=== PATIENT | female | born 1960 | race Caucasian/White ===

== ENCOUNTER → 2017-10-17 | Outpatient (CLI) | payer OTHER ==
[~2017-10-17] MED LIST: ACET500 PO; ALPR.5 PO; AMLO10 PO; AMLO5 PO; ASPI81CH PO; BACL10 PO; CHOL10002 PO; DULO60 PO; FLUC150A PO; GABA300 PO; HYDCHL25 PO; HYDR1TAB94 PO; HYDRA25 PO; IBUP800 PO; LAMO100 PO; LISI20 PO; MELO7.5 PO; METF500 PO; NAPR500EC PO; PARO20 PO; SULTRIDS PO; UBID10 PO
[2017-10-17 16:29] LABS: Creatinine, Urine Random 75.7 mg/dL (27.00-270.00); Protein, Urine Random 15.6 mg/dL (0.0-11.9)
== END ==
LOC: OLS 14:06
PROVIDERS: Internal Medicine
DX: E11.9 Type 2 diabetes mellitus without complications (principal); E22.1 Hyperprolactinemia; I10 Essential (primary) hypertension
CPT/HCPCS: 82570; 84156

== ENCOUNTER 2021-04-26 21:43 | Emergency (ER) | payer OTHER ==
[~2021-04-26] VITALS: Ht 165.1 cm; Wt 163.3 kg
[2021-04-26] MEDS ORDERED: OXYC10TA19 PO (22:11)
[2021-04-26] MEDS ORDERED: PARO20 PO (22:12)
== END 2021-04-26 23:37 | disposition home or self-care (01) ==
LOC: ER 21:43
DX: M54.5 Low back pain (principal); E11.9 Type 2 diabetes mellitus without complications; I10 Essential (primary) hypertension; Z79.82 Long term (current) use of aspirin; Z79.899 Other long term (current) drug therapy; W01.10XA Fall on same level from slipping, tripping and stumbling with subsequent striking against unspecified object, initial encounter
CPT/HCPCS: 72100; 99283-25; A9270

== ENCOUNTER → 2024-06-08 | Outpatient (CLI) | payer OTHER ==
[~2024-06-08] MED LIST changes: +OXYC10TA19 PO
[2024-06-08 19:07] LABS: Hematocrit 38.7 % (33.0-51.0); Hemoglobin 12.4 g/dL (11.5-16.0); Mean Corpuscular Volume 90 fL (80-100); Mean Platelet Volume 10.9 fL (9.1-12.4); Platelet Count 283 K/mm3 (150-400); RDW Coefficient Variation 14.5 % (11.7-14.2); RDW Standard Deviation 48.1 fL (35.1-46.3); Red Blood Cell Count 4.28 M/mm3 (3.80-5.20); White Blood Cell Count 6.22 K/mm3 (4.00-11.30)
[2024-06-08 19:26] LABS: Iron Serum 69 ug/dL (50-170); Percent Saturation 18.7 % (15.0-50.0); Total Iron Binding Capacity 369 ug/dL (250-450); Very Low Density Lipoprot Chol 29 mg/dL (6-32)
[2024-06-08 19:28] LABS: Alanine Aminotransfer (ALT/SGP 34 U/L (12-78); Albumin, Blood 3.4 g/dL (3.4-5.0); Alk Phos 81 U/L (50-136); Anion Gap 8 mmol/L (3-11); Aspartate Aminotrans (AST/SGOT 21 U/L (12-37); Bilirubin, Total 0.3 mg/dL (0.1-1.0); Blood Urea Nitrogen 13 mg/dL (8-24); CHOL/HDL RATIO 3.2; CO2, Blood 27 mmol/L (21-32); Calcium, Blood 8.9 mg/dL (8.5-10.1); Chloride, Blood 109 mmol/L (98-108); Cholesterol 216 mg/dL (50-200); Creatinine, Blood 0.57 mg/dL (0.40-1.00); Ferritin, Serum 19 ng/mL (8-252); Globulin, Blood 3.5 g/dL (2.2-4.0); Glomerular Filtration Rate 103 (60-); Glucose, Blood 213 mg/dL (70-99); HDL Cholesterol 67 mg/dL (>39); LDL/HDL RATIO 1.8; Low Density Lipoprotein Chol 120 mg/dL (0-110); Potassium, Blood 4.1 mmol/L (3.5-5.5); Sodium, Blood 140 mmol/L (136-145); Total Protein, Blood 6.9 g/dL (6.4-8.2); Triglycerides 145 mg/dL (30-160)
[2024-06-08 19:47] LABS: Microalb/Creat Ratio UR, Rand 7.172 mg/g (0.000-30.000); Microalbumin, Random Urine 8.75 mg/L (0.000-20.000)
== END | disposition home or self-care (01) ==
LOC: LAB 17:07 → LAB SHORT 17:07
PROVIDERS: Internal Medicine
DX: E11.65 Type 2 diabetes mellitus with hyperglycemia (principal); D50.9 Iron deficiency anemia, unspecified; E78.2 Mixed hyperlipidemia
CPT/HCPCS: 80053; 80061; 82043; 82570; 82728; 83036; 83540; 83550; 85027